=== PATIENT | male | born 1935 | race Caucasian/White ===

== ENCOUNTER 2017-04-29 14:43 | Emergency (ER) | payer MEDICARE, BC ==
[2017-04-29 15:09] LABS: Hematocrit 40.9 % (42.0-52.0); Hemoglobin 13.9 gm/dL (13.5-18.0); Mean Cell Volume 89.7 fl (78-100); Mean Corpuscular Hemoglobin 30.5 pg (27-31); Mean Platelet Volume 9.6 fl (6.0-9.5); Neutrophil # 3.8 K/mm3 (1.3-6.0); Neutrophil % 57.5 % (42-75.0); Platelet Count 149 K/mm3 (150-450); Red Blood Count 4.56 M/mm3 (4.7-6.0); Red Cell Distribution Width 12.7 % (11.5-14.0); White Blood Count 6.6 K/mm3 (4.0-10.5)
[2017-04-29] MEDS ORDERED: MIDAZOLAM HCL/PF 5 MG/ML VIAL ONE (15:10)
[2017-04-29] MEDS ORDERED: PROPOFOL 1,000 MG/100 ML PIGGYBACK IV PRN (15:16)
[2017-04-29 15:19] LABS: Prothrombin Time (Patient) 10.6 Seconds (9.4-11.4)
[2017-04-29 15:20] LABS: INR 1.02 INR (0.90-1.10); Partial Thrombolplastin Time 29.7 Seconds (24-32)
[2017-04-29 15:22] LABS: Anion Gap 11.5 mmol/L (6.8-13.8); BUN/Creatinine Ratio 13.2 (9.0-21.6); Bilirubin, Total 0.5 mg/dL (0.0-1.1); Ca. Corrected For Albumin 8.7 mg/dL (8.4-10.2); Carbon Dioxide 31.2 mmol/L (24-32.6); Potassium 3.7 mmol/L (3.4-4.6); Total Protein 7.5 gm/dL (6.2-8.2)
[2017-04-29] MEDS ORDERED: DIPHTH,PERTUSS(ACELL),TET VAC 0.5 ML VIAL IM ONE ×2 (15:29)
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
[2017-04-29 15:48] VITALS: BP 154/83
== END 2017-04-29 15:49 | disposition short-term general hospital (02) ==
LOC: ER 14:43
PROC: 0BH17EZ Insertion of Endotracheal Airway into Trachea, Via Natural or Artificial Opening (ICD-10-PCS; principal; 2017-04-29)
DX: E11.9 Type 2 diabetes mellitus without complications (principal); J44.9 Chronic obstructive pulmonary disease, unspecified; Z86.73 Personal history of transient ischemic attack (TIA), and cerebral infarction without residual deficits; I10 Essential (primary) hypertension; E78.5 Hyperlipidemia, unspecified; Z85.51 Personal history of malignant neoplasm of bladder; Z85.118 Personal history of other malignant neoplasm of bronchus and lung; Z85.828 Personal history of other malignant neoplasm of skin; Z23 Encounter for immunization